=== PATIENT | female | born 1940 | race Two or more races ===

== ENCOUNTER 2018-12-19 10:56 | Day surgery (SDC) | payer OTHER | END 2018-12-19 16:10 | disposition home or self-care (01) | LOC: AMB-ENDOS 10:56 | DX: D12.3 Benign neoplasm of transverse colon (principal); K64.1 Second degree hemorrhoids ==

== ENCOUNTER 2019-08-13 09:48 | Outpatient (CLI) | payer OTHER | END 2019-08-13 09:51 | disposition home or self-care (01) | LOC: SONOGRAMA 09:48 | DX: E04.1 Nontoxic single thyroid nodule (principal) ==